=== PATIENT | female | born 1955 | race Caucasian/White ===

== ENCOUNTER 2018-12-14 09:30 | Day surgery (SDC) | payer MEDICAID ==
[~2018-12-14] VITALS: Ht 149.9 cm; Wt 68.0 kg
[~2018-12-14 09:30] MED LIST: AMIT25TA9 PO; ATOR40TA70 PO; GLIP10TA10 PO; LISI10TA5 PO; METF-414 PO; OMEP20TA2 PO; PROP20TA7 PO; SUMA25TA9 PO
[2018-12-14] MEDS ORDERED: SIMETHICONE 40 MG/0.6 ML 30ML ONE (11:33)
[2018-12-14] MEDS ORDERED: PROPOFOL 200MG/20ML VIAL IV ONE ×2 (12:38→13:07)
[2018-12-14] MEDS ORDERED: LIDOCAINE HCL/PF 1% 10 MG/ML 5ML VIAL ONE (13:06)
[2018-12-14] MEDS ORDERED: ONDANSETRON HCL 4MG/2ML INJ IV PRN (13:30)
[2018-12-14] MEDS ORDERED: MEPERIDINE HCL/PF 25MG/ML CPJ IV PRN (13:30)
[2018-12-14] MEDS ORDERED: KETOROLAC 30MG/ML VIAL IV ONE (13:45)
[2018-12-14] MEDS ORDERED: KETOROLAC 30MG/ML VIAL ONE (13:51)
[2018-12-14 13:56] VITALS: BP 146/79
== END 2018-12-14 14:45 | disposition home or self-care (01) ==
LOC: OR 09:30
PROVIDERS: ATTEND Internal Medicine Gastroenterology
DX: D12.2 Benign neoplasm of ascending colon (principal); K29.50 Unspecified chronic gastritis without bleeding; K57.30 Diverticulosis of large intestine without perforation or abscess without bleeding; I85.01 Esophageal varices with bleeding; K74.60 Unspecified cirrhosis of liver; I10 Essential (primary) hypertension; E11.9 Type 2 diabetes mellitus without complications; K21.9 Gastro-esophageal reflux disease without esophagitis; M19.90 Unspecified osteoarthritis, unspecified site; Z79.899 Other long term (current) drug therapy; Z88.8 Allergy status to other drugs, medicaments and biological substances; Z79.84 Long term (current) use of oral hypoglycemic drugs
CPT/HCPCS: 43239; 45380; 82962; 88305; 88312; 88313; J2704; J3490; J1885